=== PATIENT | female | born 1995 | race Two or more races ===

== ENCOUNTER 2021-10-26 11:51 | Emergency (ER) | payer OTHER, SELFPAY ==
[2021-10-26 15:11] VITALS: BP 153/83; PULSE 85; RESP 18; TEMP 36.7; O2SAT 98; BMI 41.5
== END 2021-10-26 22:09 | disposition left against medical advice (07) ==
PROVIDERS: Emergency Provider Emergency Medicine
DX: R10.9 Unspecified abdominal pain (principal)
CPT/HCPCS: 99281

== ENCOUNTER 2022-11-21 21:19 | Emergency (ER) | payer OTHER, SELFPAY ==
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
[2022-11-21 21:28] VITALS: BP 136/70; PULSE 89; RESP 20; TEMP 36.2; O2SAT 99; BMI 41.5
[2022-11-21 21:54] VITALS: BP 140/69; PULSE 88; RESP 20; TEMP 36.4; O2SAT 99
[2022-11-21] MEDS: Metoclopramide HCl 10 MG TABLET PO (22:33)
[2022-11-21] MEDS: Acetaminophen 325 MG TABLET 975 MG PO (22:34)
--- NOTE | 2022-11-21 22:38 | PC.NURSE ---
pt medicated with reglan and APAP for 4/10 knee pain and 8/10 head pain. pt endorses photophobia, lights dimmed, noise minimized, call fagan within reach
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
== END 2022-11-21 23:56 | disposition home or self-care (01) ==
PROVIDERS: Emergency Provider Emergency Medicine
DX: S06.0X0A Concussion without loss of consciousness, initial encounter (principal); S80.212A Abrasion, left knee, initial encounter; R51.9 Headache, unspecified; M54.2 Cervicalgia; V43.02XA Car driver injured in collision with other type car in nontraffic accident, initial encounter; Y93.9 Activity, unspecified; Y92.481 Parking lot as the place of occurrence of the external cause; Y99.9 Unspecified external cause status
CPT/HCPCS: 70450; 72125; 73564; 99283